=== PATIENT | male | born 1965 | race Caucasian/White ===

== ENCOUNTER 2018-11-16 17:23 | Emergency (ER) | payer OTHER, SELFPAY ==
[2018-11-16 17:27] VITALS: BP 163/99; PULSE 71; RESP 15; TEMP 36.6; O2SAT 100; BMI 32.1
--- NOTE | 2018-11-16 17:38 | EKG12_ITS ---
Test Reason : SYNCOPE Blood Pressure : / mmHG Vent. Rate : 074 BPM Atrial Rate : 074 BPM P-R Int : 192 ms QRS Dur : 176 ms QT Int : 462 ms P-R-T Axes : 004 -54 118 degrees QTc Int : 512 ms Normal sinus rhythm Left axis deviation Left bundle branch block Abnormal ECG Confirmed by LOGAN ASIF ([id number]), news copy editor ZULEMA CARROLL ([id number]) on 11/22/2018 9:38:06 AM Referred By: RANDI Confirmed By:LOGAN ASIF
--- NOTE | 2018-11-16 17:38 | RAD_ITS ---
STUDY: X-RAY - PELVIS AND RIGHT HIP REASON FOR EXAM: Male, 53 years old. Bilateral hip pain TECHNIQUE: 3 views of the pelvis and hip. COMPARISON: None. FINDINGS: There is a non-specific bowel gas pattern. Normal visualized soft tissue structures. Normal bilateral iliac wings, sacroiliac joints and visualized sacrum. Normal bilateral superior and inferior pubic rami. Normal pubic symphysis. Normal bilateral ischial tuberosities. Normal appearance to right hip prosthesis without evidence for acute fracture. No definitive radiographic evidence for loosening or infection.. RAD/HIP, UNI W/ Pelvis 2-3 Views IMPRESSION: Stable appearance to right hip prosthesis No acute fracture or other significant bony pathology Electronically Signed: Get Browne MD at 18:09 EDT , Service support ,
--- NOTE | 2018-11-16 17:39 | ED.VISSUMM ---
- ER Visit Summary Date of Service: 11/16/18 Chief Complaint: Syncope, right hip pain History of Present Illness: The patient is a 53 M who had a syncopal episode. Patient states that he was under a stressful situation trying to find his son. He states that he was sitting down. He then stood up very quickly and saw stars and then had a syncopal episode. He fell onto his right hand side. He is not complaining of right hip pain. 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 It has dislocated previously and he has relocated it himself. He has no chest pain or shortness of breath currently or before the syncopal episode. He denies any other symptoms at this time. He has no cardiac history but did have a cardiac catheterization here which was clear and he has no stents in his heart. Physical Examination: Vital signs reviewed. HEENT exam unremarkable. Heart is regular rate and rhythm without murmurs. Lungs are clear to auscultation. Abdomen is soft and nontender. Extremities reveal no edema. He does have some right anterior hip tenderness to palpation. He has decreased range of motion of the hip secondary to pain. Skin exam normal. Neurologic exam normal. Test Results: EKG was sinus rhythm with a rate of 74. He does have a left bundle branch block. Nonspecific ST and T wave changes are noted. Laboratory studies are remarkable for creatinine 1.34, glucose 107. Troponin normal. Right hip x-ray reveals no dislocation or fracture per my and radiologist interpretation. Emergency Department Course and Treatment: While laying in bed and during my interview he felt like his hip was dislocated so he was able to relocate it himself. He states his pain is still there but he has better range of motion of it. His work-up is fairly negative here. Upon reevaluation he was much improved. I did give him Ativan because he was very anxious. Patient will be monitored on the awake overnight monitor here and then likely discharged home. He was counseled to follow-up with his doctor and to stand up and rise out of a sitting or lying position slowly. Treatment Plan: [] Disposition: Discharge Impression: Syncope, right hip pain This note was generated with [employer] software. It may contain incorrect words, spelling, and punctuation that were not noted in review of the chart prior to signing ED Disposition - Plan for ED Patient: Referrals: Ravindra Galvin MD [Primary Care Provider] -
[2018-11-16] MEDS: Ibuprofen 600 MG Tablet PO (17:46)
[2018-11-16 17:49] LABS: Absolute Lymphocyte Count 3.74 X10^3/uL (0.83-4.51); Absolute Neutrophil Count 3.9 X10^3/uL (2.0-7.7); Basophil# 0.06 X10^3/uL; Basophil% 0.7 % (0-1); Eosinophil# 0.08 X10^3/uL; Eosinophils% 0.9 % (0-5); Hematocrit 46.5 % (40-54); Hemoglobin 15.8 g/dL (13.0-16.5); Lymphocyte # 3.74 X10^3/ul (4.0); Mean Corpuscular Hgb 29.5 pg (27.0-32.0); Mean Corpuscular Volume 86.8 fL (80-94); Mean Platelet Vol. 10.4 fl (6.2-12.0); Monocyte# 0.73 X10^3/uL; Monocyte% 8.6 % (0-10); NRBC Flagged by Analyzer 0 % (0-5); Neutrophil # 3.86 X10^3/uL (2.7-7.7); Neutrophil % 45.4 % (47-70); Platelet Count 248 K/mm3 (150-450); RBC Distribution Width CV 12.9 % (11.6-14.6); RBC Distribution Width SD 40.4 fl (35.1-43.9); Red Blood Count 5.36 M/mm3 (4.6-6.2); White Blood Count 8.5 K/mm3 (4.4-11.0)
[2018-11-16 18:05] LABS: Anion Gap 12 (5-15); BUN 11 mg/dL (7-18); BUN/Creat Ratio 8.2 RATIO (10-20); Calcium,Total 8.7 mg/dL (8.5-10.1); Chloride 103 mmol/L (98-107); Creatinine, Serum 1.34 mg/dL (0.70-1.30); EST Glomerular Filtration Rate 59 mL/min (>60); Est Glom Filt Rate - Afr Amer 72 mL/min (>60); Estimated Creatinine Clearance 74.12 ml/min; Glucose 107 mg/dL (74-106); Potassium 3.6 mmol/L (3.5-5.1); Sodium Level 140 mmol/L (136-145)
[2018-11-16] MEDS: LORazepam 1 MG Tablet PO (18:33)
[2018-11-16 18:35] VITALS: BP 153/85; PULSE 69; RESP 17; O2SAT 99
--- NOTE | 2018-11-16 18:44 | ED.DEP ---
ED Disposition - Plan for ED Patient: Disposition: Home or Assisted Living Instructions: SYNCOPE, Vasovagal Referrals: Ravindra Galvin MD [Primary Care Provider] -
[2018-11-16 18:57] VITALS: BP 153/85; PULSE 66; RESP 17; O2SAT 98
== END 2018-11-16 18:59 | disposition home or self-care (01) ==
PROVIDERS: Emergency Provider Emergency Medicine; Family Provider Family Medicine; PCP Family Medicine
DX: R55 Syncope and collapse (principal); M25.551 Pain in right hip; I44.7 Left bundle-branch block, unspecified; I10 Essential (primary) hypertension; Z96.641 Presence of right artificial hip joint; Z72.0 Tobacco use
CPT/HCPCS: 73502; 80048; 84484; 85025; 93005; 99285; J7030; A4216